=== PATIENT | female | born 1990 | race African-American/Black ===

== ENCOUNTER 2017-07-02 17:39 | Emergency (ER) | payer MEDICAID ==
[~2017-07-02] VITALS: Ht 157.5 cm; Wt 63.0 kg
[~2017-07-02 17:39] MED LIST: HYDR-523 PO
[2017-07-02] MEDS ORDERED: KETOROLAC 30MG/ML VIAL IV STA (23:37)
[2017-07-02] MEDS ORDERED: FAMOTIDINE 20MG/2ML VIAL IV STA (23:37)
[2017-07-02] MEDS ORDERED: SODIUM CHLORIDE 0.9% 1,000 ML IV ONE (23:37)
[2017-07-02 23:59] LABS: BASOPHILS % 0.8 % (0.0-2.0); EOSINOPHILS % 2.3 % (0.0-5.0); HEMATOCRIT. 37.4 % (36.0-48.0); HEMOGLOBIN. 11.7 g/dL (12.0-16.0); LYMPHOCYTES % 15.9 % (20.0-50.0); MEAN CORPUSCULAR VOLUME 70.3 fL (81.0-99.0); MEAN PLATELET VOLUME 7.4 fl (7.4-10.4); MONOCYTES % 4.6 % (2.0-8.0); NEUTROPHILS % 76.4 % (40.0-76.0); PLATELET 408 x1000/uL (130-400); RED BLOOD CELL COUNT 5.32 mill/uL (4.2-5.4); RED CELL DISTRIBUTION WIDTH 16.6 % (11.6-14.6)
[2017-07-03 00:13] LABS: CARBON DIOXIDE 26 mEq/L (21-32); CHLORIDE 103 mEq/L (98-107); ETHANOL BLOOD < 10 mg/dL; TROPONIN I < 0.02 ng/mL (0.00-0.04)
[2017-07-03 00:14] LABS: HCG SCREEN NEGATIVE
[2017-07-03 00:20] LABS: D-DIMER < 0.19 mg/L FEU (<0.50); PROTHROMBIN TIME 10.1 sec (9.4-11.6)
[2017-07-03 00:39] LABS: CLARITY URINE CLEAR (CLEAR); COLOR URINE YELLOW (YELLOW); GLUCOSE URINE NEGATIVE (NEGATIVE); KETONES URINE NEGATIVE (NEGATIVE); LEUKOCYTE ESTERASE URINE 2+ (NEGATIVE); NITRITE URINE NEGATIVE (NEGATIVE); OCCULT BLOOD URINE 1+ (NEGATIVE); PROTEIN URINE 1+ (NEGATIVE); SPECIFIC GRAVITY URINE 1.009 (1.005-1.030); UROBILINOGEN URINE 0.2 E.U./dL (0.2-1.0)
[2017-07-03 01:02] LABS: *AMPHETAMINES SCREEN URINE NEGATIVE (NEGATIVE); *BARBITURATES SCREEN URINE NEGATIVE (NEGATIVE); *BENZODIAZEPINES SCREEN URINE NEGATIVE (NEGATIVE); *COCAINE SCREEN URINE NEGATIVE (NEGATIVE); CANNABINOID URINE SCREEN NEGATIVE (NEGATIVE); METHADONE URINE SCREEN NEGATIVE (NEGATIVE); OPIATES URINE SCREEN NEGATIVE (NEGATIVE); PHENCYCLIDINE URINE SCREEN NEGATIVE (NEGATIVE)
[2017-07-03] MEDS ORDERED: CEFTRIAXONE 1 G PREMIX 50 ML IV SCH (01:19)
[2017-07-03 04:40] VITALS: BP 112/70
== END 2017-07-03 04:43 | disposition home or self-care (01) ==
LOC: ER 17:39
DX: R10.84 Generalized abdominal pain (principal); N12 Tubulo-interstitial nephritis, not specified as acute or chronic; Z90.49 Acquired absence of other specified parts of digestive tract
CPT/HCPCS: 36415; 74176; 80053; 80305; 81001; 83690; 83880; 84484; 84703; 85025; 85379; 85610; 87077; 87086; 87186; 93005; 96361; 96365; 96366; 96375; 99285; G0482; J0696; J1885; J3490; J7030; Z7610

== ENCOUNTER 2018-07-06 21:01 | Emergency (ER) | payer MEDICAID ==
[~2018-07-06] VITALS: Ht 157.5 cm; Wt 75.0 kg
[2018-07-06 22:37] LABS: CLARITY URINE CLEAR (CLEAR); COLOR URINE YELLOW (YELLOW); KETONES URINE TRACE (NEGATIVE); LEUKOCYTE ESTERASE URINE 1+ (NEGATIVE); NITRITE URINE NEGATIVE (NEGATIVE); OCCULT BLOOD URINE NEGATIVE (NEGATIVE); PROTEIN URINE NEGATIVE (NEGATIVE); SPECIFIC GRAVITY URINE 1.011 (1.005-1.030); UROBILINOGEN URINE 0.2 E.U./dL (0.2-1.0)
[2018-07-07] MEDS ORDERED: FAMOTIDINE 20MG/2ML VIAL IV NR (00:13)
[2018-07-07] MEDS ORDERED: ONDANSETRON HCL 4MG/2ML INJ IV NR (00:13)
[2018-07-07] MEDS ORDERED: MORPHINE SULFATE 4 MG/ML CPJ (NOT FOR IM USE) IV NR (00:13)
[2018-07-07] MEDS ORDERED: SODIUM CHLORIDE 0.9% 1,000 ML IV NR (00:13)
[2018-07-07 00:45] LABS: BASOPHILS % 0.7 % (0.0-2.0); EOSINOPHILS % 1.7 % (0.0-5.0); HEMATOCRIT. 35.8 % (36.0-48.0); HEMOGLOBIN. 11.4 g/dL (12.0-16.0); LYMPHOCYTES % 17.2 % (20.0-50.0); MEAN CORPUSCULAR HEMOGLOBIN 22.4 pg (28.0-32.0); MEAN CORPUSCULAR VOLUME 70.2 fL (81.0-99.0); MONOCYTES % 6.7 % (2.0-8.0); NEUTROPHILS % 73.7 % (40.0-76.0); PLATELET 378 x1000/uL (130-400); RED BLOOD CELL COUNT 5.11 mill/uL (4.2-5.4); RED CELL DISTRIBUTION WIDTH 17.5 % (11.6-14.6)
[2018-07-07 00:50] LABS: CHLORIDE 100 mEq/L (98-107)
[2018-07-07 01:15] LABS: HCG SCREEN NEGATIVE
[2018-07-07] MEDS ORDERED: IOHEXOL-300 100 ML BOTTLE ONE (03:29)
[2018-07-07 05:50] VITALS: BP 108/61
== END 2018-07-07 05:50 | disposition home or self-care (01) ==
LOC: ER 21:01
DX: K52.9 Noninfective gastroenteritis and colitis, unspecified (principal); Z90.49 Acquired absence of other specified parts of digestive tract; Z88.8 Allergy status to other drugs, medicaments and biological substances
CPT/HCPCS: 36415; 74177; 80053; 81003; 81025; 83605; 83690; 84703; 85025; 96361; 96374; 96375; 99285; J2270; J2405; J3490; Q9967; Z7610

== ENCOUNTER 2018-12-26 20:35 | Emergency (ER) | payer MEDICAID ==
[~2018-12-26] VITALS: Ht 157.5 cm; Wt 75.0 kg
[2018-12-26 22:58] LABS: HEMATOCRIT 33.2 % (36.0-48.0); HEMOGLOBIN 10.6 g/dL (12.0-16.0); MEAN CORPUSCULAR HEMOGLOBIN 22.5 pg (28.0-32.0); MEAN CORPUSCULAR VOLUME 70.6 fL (81.0-99.0); PLATELET 369 x1000/uL (130-400); RED CELL DISTRIBUTION WIDTH 17.3 % (11.6-14.6)
[2018-12-26 23:05] LABS: CHLORIDE 105 mEq/L (98-107)
[2018-12-26 23:14] LABS: CLARITY URINE CLEAR (CLEAR); COLOR URINE YELLOW (YELLOW); KETONES URINE NEGATIVE (NEGATIVE); LEUKOCYTE ESTERASE URINE TRACE (NEGATIVE); NITRITE URINE NEGATIVE (NEGATIVE); OCCULT BLOOD URINE NEGATIVE (NEGATIVE); PROTEIN URINE NEGATIVE (NEGATIVE); SPECIFIC GRAVITY URINE 1.009 (1.005-1.030); UROBILINOGEN URINE 0.2 E.U./dL (0.2-1.0)
[2018-12-26] MEDS ORDERED: KETOROLAC 30MG/ML VIAL IV ONE (23:30)
[2018-12-26] MEDS ORDERED: CEPHALEXIN 250MG CAPSULE PO NR (23:45)
[2018-12-27 02:23] VITALS: BP 122/78
== END 2018-12-27 02:24 | disposition home or self-care (01) ==
LOC: ER 20:35
DX: N39.0 Urinary tract infection, site not specified (principal); R07.89 Other chest pain; Z90.49 Acquired absence of other specified parts of digestive tract; Z79.899 Other long term (current) drug therapy
CPT/HCPCS: 36415; 71045; 80053; 81003; 81025; 83690; 85027; 93005; 96374; 99284; J1885

== ENCOUNTER 2019-06-09 12:29 | Emergency (ER) | payer MEDICAID ==
[~2019-06-09] VITALS: Ht 157.5 cm; Wt 73.0 kg
[2019-06-09 13:08] LABS: CLARITY URINE CLEAR (CLEAR); COLOR URINE YELLOW (YELLOW); KETONES URINE NEGATIVE (NEGATIVE); LEUKOCYTE ESTERASE URINE 2+ (NEGATIVE); NITRITE URINE NEGATIVE (NEGATIVE); OCCULT BLOOD URINE NEGATIVE (NEGATIVE); PROTEIN URINE NEGATIVE (NEGATIVE); SPECIFIC GRAVITY URINE 1.004 (1.005-1.030); UROBILINOGEN URINE 0.2 E.U./dL (0.2-1.0)
[2019-06-09 15:50] VITALS: BP 130/85
== END 2019-06-09 16:51 | disposition home or self-care (01) ==
LOC: ER 12:29
DX: B37.3 Candidiasis of vulva and vagina (principal); N76.0 Acute vaginitis; Z72.51 High risk heterosexual behavior; N89.8 Other specified noninflammatory disorders of vagina
CPT/HCPCS: 81003; 81025; 99283

== ENCOUNTER 2020-07-19 15:28 | Emergency (ER) | payer MEDICAID, OTHER ==
[~2020-07-19] VITALS: Ht 157.5 cm; Wt 68.0 kg
[2020-07-19 15:30] VITALS: BP 141/84
[2020-07-19] MEDS ORDERED: ACETAMINOPHEN 325MG TABLET PO ONE (16:45)
[2020-07-19 17:45] LABS: BASOPHILS % 0.7 % (0.0-2.0); EOSINOPHILS % 2.7 % (0.0-5.0); HEMATOCRIT. 35.5 % (36.0-48.0); HEMOGLOBIN. 11.2 g/dL (12.0-16.0); LYMPHOCYTES % 15.6 % (20.0-50.0); MEAN CORPUSCULAR HEMOGLOBIN 22.6 pg (28.0-32.0); MEAN CORPUSCULAR VOLUME 71.6 fL (81.0-99.0); MEAN PLATELET VOLUME 7.7 fl (7.4-10.4); MONOCYTES % 3.5 % (2.0-8.0); NEUTROPHILS % 77.5 % (40.0-76.0); PLATELET 341 x1000/uL (130-400); RED BLOOD CELL COUNT 4.96 mill/uL (4.2-5.4); RED CELL DISTRIBUTION WIDTH 18.6 % (11.6-14.6)
[2020-07-19 17:51] LABS: CHLORIDE 103 mEq/L (98-107)
[2020-07-19 18:03] LABS: B-HCG QUANTITATIVE < 1 mIU/mL (<3)
== END 2020-07-19 18:33 | disposition home or self-care (01) ==
LOC: ER 15:28
DX: N93.9 Abnormal uterine and vaginal bleeding, unspecified (principal); R10.2 Pelvic and perineal pain
CPT/HCPCS: 36415; 76830; 76856; 80053; 81025; 84702; 85025; 86850; 86900; 99284

== ENCOUNTER 2020-08-04 14:58 | Emergency (ER) | payer MEDICAID ==
[~2020-08-04] VITALS: Ht 157.5 cm; Wt 68.0 kg
[2020-08-04 15:08] VITALS: BP 126/80
[2020-08-04 17:34] LABS: BASOPHILS % 0.7 % (0.0-2.0); HEMATOCRIT. 36.1 % (36.0-48.0); HEMOGLOBIN. 11.3 g/dL (12.0-16.0); LYMPHOCYTES % 16.4 % (20.0-50.0); MEAN CORPUSCULAR HEMOGLOBIN 22.2 pg (28.0-32.0); MEAN CORPUSCULAR VOLUME 70.6 fL (81.0-99.0); MEAN PLATELET VOLUME 7.9 fl (7.4-10.4); MONOCYTES % 5.9 % (2.0-8.0); PLATELET 387 x1000/uL (130-400); RED BLOOD CELL COUNT 5.11 mill/uL (4.2-5.4); RED CELL DISTRIBUTION WIDTH 19.2 % (11.6-14.6)
[2020-08-04 17:48] LABS: CHLORIDE 104 mEq/L (98-107)
[2020-08-04 17:54] LABS: HCG SCREEN NEGATIVE
== END 2020-08-04 18:20 | disposition home or self-care (01) ==
LOC: ER 14:58
DX: N93.8 Other specified abnormal uterine and vaginal bleeding (principal); R74.01 Elevation of levels of liver transaminase levels; Z76.0 Encounter for issue of repeat prescription
CPT/HCPCS: 36415; 80053; 84703; 85025; 99283

== ENCOUNTER 2021-04-28 13:49 | Emergency (ER) | payer OTHER, MEDICAID ==
[~2021-04-28] VITALS: Ht 157.5 cm; Wt 75.0 kg
[2021-04-28 15:28] LABS: HEMATOCRIT. 32.7 % (36.0-48.0); HEMOGLOBIN. 10.6 g/dL (12.0-16.0); MEAN CORPUSCULAR HEMOGLOBIN 22.5 pg (28.0-32.0); MEAN CORPUSCULAR VOLUME 69.6 fL (81.0-99.0); MEAN PLATELET VOLUME 7.9 fl (7.4-10.4); PLATELET 347 x1000/uL (130-400); RED CELL DISTRIBUTION WIDTH 19.1 % (11.6-14.6)
[2021-04-28 15:32] LABS: CHLORIDE 103 mEq/L (98-107)
[2021-04-28] MEDS ORDERED: HYDROCODONE/ACETAMINOPHEN 5/325MG TABLET PO STA (15:37)
[2021-04-28] MEDS ORDERED: MAGNESIUM/ALUMINUM HYDROXIDE/SIMETHICONE 30ML UDC PO STA (15:37)
[2021-04-28 15:41] LABS: HCG SCREEN NEGATIVE
[2021-04-28 15:48] LABS: PLATELET ESTIMATE NORMAL
[2021-04-28 16:11] LABS: CLARITY URINE CLOUDY (CLEAR); COLOR URINE RED (YELLOW); KETONES URINE TRACE (NEGATIVE); LEUKOCYTE ESTERASE URINE 2+ (NEGATIVE); NITRITE URINE POSITIVE (NEGATIVE); OCCULT BLOOD URINE 3+ (NEGATIVE); PROTEIN URINE 1+ (NEGATIVE); SPECIFIC GRAVITY URINE 1.028 (1.005-1.030)
[2021-04-28] MEDS: ONDANSETRON 4MG ODT PO STA ×2 (16:17→16:24)
[2021-04-28] MEDS ORDERED: ONDANSETRON 4MG ODT PO NR (16:30)
[2021-04-28] MEDS ORDERED: CEPH500T MT (18:29)
[2021-04-28] MEDS ORDERED: SODIUM CHLORIDE 0.9% 1,000 ML IV ONE (18:30)
[2021-04-28] MEDS ORDERED: CEPHALEXIN 250MG CAPSULE PO NR (18:30)
[2021-04-28] MEDS ORDERED: POTASSIUM CHLORIDE 20MEQ TABLET SR PO NR (18:30)
[2021-04-28] MEDS ORDERED: IBUPROFEN 600MG TABLET PO ONE (18:45)
[2021-04-28] MEDS ORDERED: HYDROCODONE/ACETAMINOPHEN 5/325MG TABLET PO ONE (18:45)
[2021-04-28 19:39] VITALS: BP 121/74
[2021-04-28] MEDS ORDERED: IOHEXOL-300 100 ML BOTTLE ONE (23:37)
== END 2021-04-28 19:42 | disposition home or self-care (01) ==
LOC: ER 13:49
DX: N39.0 Urinary tract infection, site not specified (principal); D72.829 Elevated white blood cell count, unspecified; Z90.49 Acquired absence of other specified parts of digestive tract
CPT/HCPCS: 36415; 74177; 80053; 81003; 81025; 83690; 84703; 85025; 96360; 99285; Q0162; Q9967

== ENCOUNTER 2021-11-13 16:07 | Emergency (ER) | payer MEDICAID, OTHER ==
[~2021-11-13] VITALS: Ht 157.5 cm; Wt 73.0 kg
[~2021-11-13 16:07] MED LIST changes: +CEPH500T MT
[2021-11-13 16:14] VITALS: BP 144/114
[2021-11-13] MEDS ORDERED: TC1U15 TP (16:43)
[2021-11-13] MEDS ORDERED: MINE50OI TP (16:44)
[2021-11-13] MEDS ORDERED: KETOROLAC 60MG/2ML VIAL IM ONE (16:45)
[2021-11-13] MEDS ORDERED: DIPHENHYDRAMINE 50MG CAPSULE PO ONE (16:45)
[2021-11-13] MEDS ORDERED: B50 MT (16:45)
== END 2021-11-13 17:26 | disposition home or self-care (01) ==
LOC: ER 16:07
DX: L29.9 Pruritus, unspecified (principal); Z90.49 Acquired absence of other specified parts of digestive tract
CPT/HCPCS: 96372; 99283; J1885; Q0163

== ENCOUNTER 2024-08-01 14:13 | Emergency (ER) | payer MEDICAID ==
[~2024-08-01] VITALS: Ht 167.6 cm; Wt 81.0 kg
[~2024-08-01 14:13] MED LIST changes: +B50 MT; +MINE50OI TP; +TC1U15 TP
[2024-08-01 14:33] VITALS: TEMP 98.5; O2SAT 100
[2024-08-01] MEDS: DIPHENHYDRAMINE 50MG/ML VIAL IV ONE (16:35)
[2024-08-01] MEDS: METHYLPREDNISOLONE SOD SUCC 40MG/ML (ACT-O-VIAL) IV ONE (16:35)
[2024-08-01] MEDS: KETOROLAC 30MG/ML VIAL IV ONE (16:35)
[2024-08-01] MEDS: MORPHINE SULFATE 4 MG/ML INJ (FOR IV/IM USE) IV ONE (16:45)
[2024-08-01] MEDS ORDERED: HYDR-4001 MT (16:59)
[2024-08-01] MEDS ORDERED: P50 MT (16:59)
[2024-08-01] MEDS ORDERED: TC1U15 TP (16:59)
[2024-08-01 17:00] LABS: BASOPHILS % 0.5 % (0.0-2.0); HEMATOCRIT. 41.1 % (36.0-48.0); HEMOGLOBIN. 12.9 g/dL (12.0-16.0); LYMPHOCYTES % 8.7 % (20.0-50.0); MEAN CORPUSCULAR HEMOGLOBIN 26.1 pg (28.0-32.0); MEAN CORPUSCULAR HGB CONC 31.4 g/dL (31.0-37.0); MEAN CORPUSCULAR VOLUME 83.2 fL (81.0-99.0); MEAN PLATELET VOLUME 7.2 fl (7.4-10.4); NEUTROPHILS % 75.8 % (40.0-76.0); PLATELET 414 x1000/uL (130-400); RED BLOOD CELL COUNT 4.94 mill/uL (4.2-5.4); RED CELL DISTRIBUTION WIDTH 15.1 % (11.6-14.6); WHITE BLOOD COUNT 14.8 x1000/uL (4.5-11.0)
[2024-08-01 17:06] LABS: CHLORIDE 106 mEq/L (98-107); SODIUM 140 mEq/L (136-145)
[2024-08-01 17:07] LABS: CALCIUM 9.2 mg/dL (8.7-10.4); CARBON DIOXIDE 21 mEq/L (21-32)
[2024-08-01 17:11] LABS: HCG SCREEN NEGATIVE
[2024-08-01 17:12] LABS: CREATININE 0.6 mg/dL (0.6-1.0); GLUCOSE 88 mg/dL (70-105)
[2024-08-01 17:26] LABS: UREA NITROGEN BLOOD < 5 mg/dL (9-23)
[2024-08-01 17:40] VITALS: BP 145/71; PULSE 85; RESP 17; O2SAT 98
== END 2024-08-01 17:41 | disposition home or self-care (01) ==
LOC: ER 14:13
DX: L40.9 Psoriasis, unspecified (principal); Z90.49 Acquired absence of other specified parts of digestive tract; Z79.899 Other long term (current) drug therapy
CPT/HCPCS: 80048; 84703; 85025; 36415; 96374; 96375; 99285; J1200; J1885; J2920; J2270; Z7610

== ENCOUNTER 2025-03-12 22:33 | Emergency (ER) | payer MEDICAID ==
[~2025-03-12] VITALS: Ht 165.1 cm; Wt 86.0 kg
[~2025-03-12 22:33] MED LIST changes: +HYDR-4001 MT; +P50 MT
[2025-03-12 22:34] VITALS: O2SAT 97
[2025-03-12 23:10] LABS: BASOPHILS % 0.8 % (0.0-2.0); EOSINOPHILS % 10.1 % (0.0-5.0); HEMATOCRIT. 37.8 % (36.0-48.0); HEMOGLOBIN. 11.9 g/dL (12.0-16.0); LYMPHOCYTES % 10.4 % (20.0-50.0); MEAN CORPUSCULAR HGB CONC 31.6 g/dL (31.0-37.0); MEAN CORPUSCULAR VOLUME 85.4 fL (81.0-99.0); MEAN PLATELET VOLUME 7.6 fl (7.4-10.4); MONOCYTES % 9.3 % (2.0-8.0); NEUTROPHILS % 69.4 % (40.0-76.0); PLATELET 272 x1000/uL (130-400); RED BLOOD CELL COUNT 4.42 mill/uL (4.2-5.4); RED CELL DISTRIBUTION WIDTH 15.8 % (11.6-14.6); WHITE BLOOD COUNT 13.2 x1000/uL (4.5-11.0)
[2025-03-12 23:14] LABS: CHLORIDE 102 mEq/L (98-107); POTASSIUM 3.1 mEq/L (3.5-5.1); SODIUM 136 mEq/L (136-145)
[2025-03-12 23:15] LABS: CARBON DIOXIDE 23 mEq/L (21-32); HCG SCREEN NEGATIVE
[2025-03-12 23:16] LABS: CALCIUM 9.1 mg/dL (8.7-10.4)
[2025-03-12 23:20] LABS: GLUCOSE 111 mg/dL (70-105); UREA NITROGEN BLOOD < 5 mg/dL (9-23)
[2025-03-13 00:54] LABS: PHENCYCLIDINE URINE SCREEN NEGATIVE (NEGATIVE)
[2025-03-13] MEDS: SODIUM CHLORIDE 0.9% 1,000 ML IV ONE (01:06)
[2025-03-13] MEDS: PREDNISONE 20MG TABLET PO NR (01:06)
[2025-03-13] MEDS: HYDROXYZINE 25MG TABLET PO NR (01:07)
[2025-03-13] MEDS: ACETAMINOPHEN 325MG TABLET PO NR (01:07)
[2025-03-13] MEDS ORDERED: P20 MT (02:07)
[2025-03-13] MEDS ORDERED: HYDR-459 MT (02:07)
[2025-03-13] MEDS ORDERED: ACET-2708 MT (02:07)
[2025-03-13] MEDS ORDERED: POTA-204 MT (02:07)
[2025-03-13 02:24] VITALS: BP 97/58; PULSE 107; RESP 20; TEMP 36.7; O2SAT 97
[2025-03-13] MEDS ORDERED: TRIA15OI8 TP (03:58)
[2025-03-13] MEDS ORDERED: NIZOS TP (04:00)
[2025-03-13 04:02] LABS: *AMPHETAMINES SCREEN URINE NEGATIVE (NEGATIVE); *BARBITURATES SCREEN URINE NEGATIVE (NEGATIVE); *BENZODIAZEPINES SCREEN URINE NEGATIVE (NEGATIVE); *COCAINE SCREEN URINE NEGATIVE (NEGATIVE); CANNABINOID URINE SCREEN NEGATIVE (NEGATIVE); ECSTASY MDMA SCREEN URINE NEGATIVE (NEGATIVE); METHADONE URINE SCREEN NEGATIVE (NEGATIVE); OPIATES URINE SCREEN NEGATIVE (NEGATIVE)
== END 2025-03-13 02:45 | disposition home or self-care (01) ==
LOC: ER 22:33
DX: G89.29 Other chronic pain (principal); L40.9 Psoriasis, unspecified; F41.9 Anxiety disorder, unspecified; Z90.49 Acquired absence of other specified parts of digestive tract; Z79.899 Other long term (current) drug therapy
CPT/HCPCS: 99285; 71045; 80305; 80048; 84703; 85025; 36415; 93005; 96360; J7512; J7030

== ENCOUNTER 2025-03-13 03:02 | Emergency (ER) | payer MEDICAID ==
[~2025-03-13] VITALS: Ht 160 cm; Wt 72.1 kg
[~2025-03-13 03:02] MED LIST changes: +ACET-2708 MT; +HYDR-459 MT; +P20 MT; +POTA-204 MT
[2025-03-13 03:05] VITALS: BP 123/75; TEMP 36.5; O2SAT 100
[2025-03-13 03:08] VITALS: PULSE 100; RESP 16; O2SAT 100
[2025-03-13] MEDS ORDERED: TRIA15OI8 TP (03:58)
[2025-03-13] MEDS ORDERED: NIZOS TP (04:00)
== END 2025-03-13 04:09 | disposition home or self-care (01) ==
LOC: ER 03:30
DX: L40.9 Psoriasis, unspecified (principal); F41.9 Anxiety disorder, unspecified; Z90.49 Acquired absence of other specified parts of digestive tract; Z79.899 Other long term (current) drug therapy
CPT/HCPCS: 99283